=== PATIENT | female | born 1965 | race Caucasian/White ===

== ENCOUNTER 2018-03-06 12:59 | Inpatient (IN) | payer BC, OTHER ==
[~2018-03-06] VITALS: Ht 167.6 cm; Wt 74.8 kg
[2018-03-06] MEDS ORDERED: LOPERAMIDE HCL 2 MG CAPSULE PO PRN ×2 (17:00)
[2018-03-06] MEDS ORDERED: ONDANSETRON 4 MG/2 ML VIAL IM PRN (17:00)
[2018-03-06] MEDS ORDERED: ACETAMINOPHEN 325 MG TABLET PO PRN (17:00)
[2018-03-06] MEDS ORDERED: MAG HYDROX/AL HYDROX/SIMETH 30 ML LIQUID UDC PO PRN (17:00)
[2018-03-06] MEDS ORDERED: MAGNESIUM HYDROXIDE 30 ML LIQUID UDC PO PRN (17:00)
[2018-03-06] MEDS ORDERED: ONDANSETRON ODT 4 MG TAB.RAPDIS SL PRN (17:00)
[2018-03-06] MEDS ORDERED: LORAZEPAM 1 MG TABLET PO PRN ×2 (17:00)
[2018-03-06] MEDS ORDERED: THIAMINE HCL 200 MG/2 ML VIAL IM ONE (17:00)
[2018-03-06] MEDS ORDERED: LORAZEPAM 2 MG/1 ML VIAL IM PRN (17:00)
[2018-03-06] MEDS ORDERED: CLONIDINE HCL 0.1 MG TABLET PO PRN (17:00)
[2018-03-06] MEDS ORDERED: HYDROXYZINE PAMOATE 25 MG CAPSULE PO PRN (17:00)
[2018-03-06] MEDS ORDERED: diphenhydrAMINE 50 MG CAPSULE PO PRN (17:00)
[2018-03-06] MEDS ORDERED: MIRALAX 17 GM POWD.PACK PO PRN (17:00)
[2018-03-06] MEDS ORDERED: LEVO100T10 PO (17:19)
[2018-03-06] MEDS ORDERED: TRAZ-214 PO (17:19)
[2018-03-06] MEDS ORDERED: FLUO40CA49 PO (17:19)
[2018-03-06] MEDS ORDERED: ACAM333T8 PO (17:37)
[2018-03-06] MEDS ORDERED: GABA-534 PO (17:37)
[2018-03-06] MEDS ORDERED: SPIR50TA5 PO (17:37)
[2018-03-06] MEDS ORDERED: BENZ12LI MM (17:37)
[2018-03-06 18:10] LABS: BASOPHILS # (AUTO) 0.1 K/uL (0.0-8.0); BASOPHILS % (AUTO) 1.5 % (0.0-2.0); EOSINOPHILS # (AUTO) 0.1 K/uL (0.0-0.7); EOSINOPHILS % (AUTO) 1.1 % (0.0-7.0); HEMATOCRIT 37.9 % (31.2-41.9); HEMOGLOBIN 12.8 g/dL (10.9-14.3); LYMPHOCYTES # (AUTO) 1.5 K/uL (20.0-40.0); MEAN CORPUSCULAR HEMOGLOBIN 34.8 uug (24.7-32.8); MEAN CORPUSCULAR HGB CONC 34 g/dL (32.3-35.6); MEAN CORPUSCULAR VOLUME 102.5 fL (75.5-95.3); MONOCYTES # (AUTO) 0.3 K/uL (2.0-10.0); MONOCYTES % (AUTO) 5.6 % (0.0-11.0); NEUTROPHILS # (AUTO) 2.8 K/uL (1.8-8.9); NEUTROPHILS % (AUTO) 59.8 % (38.5-71.5); PLATELET COUNT (AUTO) 121 K/uL (179-408); WHITE BLOOD COUNT (AUTO) 4.7 K/uL (3.8-11.8)
[2018-03-06 18:11] LABS: BILIRUBIN,TOTAL 0.8 mg/dL (0.2-1.0); CREATININE 0.8 mg/dL (0.6-1.3); MAGNESIUM 1.5 mg/dL (1.8-2.4); POTASSIUM 3.9 mmol/L (3.5-5.1)
[2018-03-06 18:15] LABS: *AMPHETAMINE, URINE NEGATIVE (NEGATIVE); *BARBITURATE, URINE NEGATIVE (NEGATIVE); *CANNABINOID, URINE NEGATIVE (NEGATIVE); *COCCAINE, URINE NEGATIVE (NEGATIVE); *OPIATE, URINE NEGATIVE (NEGATIVE); *PHENCYCLIDINE SCREEN,URINE NEGATIVE (NEGATIVE)
[2018-03-06] MEDS ORDERED: MAGNESIUM OXIDE 400 MG TABLET PO ONE (19:45)
[2018-03-06 20:00] VITALS: BP 104/79
[2018-03-06] MEDS: GABAPENTIN 300 MG CAPSULE PO SCH (20:09)
[2018-03-06] MEDS: TRAZODONE 100 MG TABLET PO PRN (21:47)
[2018-03-07] VITALS: BP 121/86
[2018-03-07 04:00] VITALS: BP 110/72
[2018-03-07 07:44] LABS: BILIRUBIN,TOTAL 1.6 mg/dL (0.2-1.0); MAGNESIUM 1.7 mg/dL (1.8-2.4); POTASSIUM 4.5 mmol/L (3.5-5.1); TOTAL PROTEIN, SERUM 6.7 g/dL (6.4-8.2)
[2018-03-07 08:00] VITALS: BP 97/66
[2018-03-07] MEDS: THIAMINE HCL 100 MG TABLET PO SCH (08:32)
[2018-03-07] MEDS: MULTIVITAMINS,THERAPEUTIC TABLET PO SCH (08:32)
[2018-03-07] MEDS: LORAZEPAM 1 MG TABLET PO SCH ×4 (08:32→20:22)
[2018-03-07] MEDS: FOLIC ACID 1 MG TABLET PO SCH (08:32)
[2018-03-07] MEDS: GABAPENTIN 300 MG CAPSULE PO SCH ×3 (08:34→17:00)
[2018-03-07] MEDS: SPIRONOLACTONE 50 MG TABLET PO SCH (08:34)
[2018-03-07] MEDS ORDERED: TUBERCULIN,PURIF.PROT.DERIV. 5 TU/0.1 ML TEST ID ONE (09:00)
[2018-03-07] MEDS ORDERED: 5 DAY TAPER OF LORAZEPAM -SERENITY PROTOCOL PO PRN (09:00)
[2018-03-07] MEDS ORDERED: LEVOTHYROXINE SODIUM 100 MCG TABLET PO SCH (09:00)
[2018-03-07] MEDS ORDERED: MAGNESIUM OXIDE 400 MG TABLET PO ONE (11:45)
[2018-03-07 12:00] VITALS: BP 116/75
[2018-03-07 16:00] VITALS: BP 100/60
[2018-03-07 20:00] VITALS: BP 125/83
[2018-03-07] MEDS: TRAZODONE 100 MG TABLET PO PRN (20:31)
[2018-03-07] MEDS: IBUPROFEN 600 MG TABLET PO PRN (20:31)
[2018-03-08] VITALS (7 sets, daily range): BP systolic 102–121; BP diastolic 73–80
[2018-03-08] MEDS: LEVOTHYROXINE SODIUM 100 MCG TABLET PO SCH (07:02)
[2018-03-08 07:45] LABS: BILIRUBIN,TOTAL 1.1 mg/dL (0.2-1.0); CREATININE 1.2 mg/dL (0.6-1.3); MAGNESIUM 1.9 mg/dL (1.8-2.4); POTASSIUM 4.2 mmol/L (3.5-5.1); TOTAL PROTEIN, SERUM 7.4 g/dL (6.4-8.2)
[2018-03-08] MEDS: LORAZEPAM 1 MG TABLET PO SCH ×3 (08:37→21:00)
[2018-03-08] MEDS: FOLIC ACID 1 MG TABLET PO SCH (08:37)
[2018-03-08] MEDS: SPIRONOLACTONE 50 MG TABLET PO SCH (08:37)
[2018-03-08] MEDS: FLUOXETINE HCL 20 MG CAPSULE PO SCH (08:37)
[2018-03-08] MEDS: THIAMINE HCL 100 MG TABLET PO SCH (08:37)
[2018-03-08] MEDS: GABAPENTIN 300 MG CAPSULE PO SCH ×3 (08:38→22:15)
[2018-03-08] MEDS: MULTIVITAMINS,THERAPEUTIC TABLET PO SCH (08:38)
[2018-03-08 15:09] LABS: HEPATITIS B SURFACE AG Negative (Negative)
[2018-03-08] MEDS: IBUPROFEN 600 MG TABLET PO PRN (17:23)
[2018-03-09] VITALS: BP 99/64
[2018-03-09 04:00] VITALS: BP 100/59
[2018-03-09] MEDS: LEVOTHYROXINE SODIUM 100 MCG TABLET PO SCH (06:51)
[2018-03-09 08:12] VITALS: BP 104/69
[2018-03-09] MEDS: SPIRONOLACTONE 50 MG TABLET PO SCH (08:35)
[2018-03-09] MEDS: LORAZEPAM 1 MG TABLET PO SCH ×4 (08:35→21:20)
[2018-03-09] MEDS: FLUOXETINE HCL 20 MG CAPSULE PO SCH (08:36)
[2018-03-09] MEDS: GABAPENTIN 300 MG CAPSULE PO SCH ×3 (08:36→21:20)
[2018-03-09] MEDS: MULTIVITAMINS,THERAPEUTIC TABLET PO SCH (08:36)
[2018-03-09] MEDS: THIAMINE HCL 100 MG TABLET PO SCH (08:36)
[2018-03-09] MEDS: FOLIC ACID 1 MG TABLET PO SCH (08:36)
[2018-03-09 12:00] VITALS: BP 104/74
[2018-03-09 16:00] VITALS: BP 111/73
[2018-03-09 20:00] VITALS: BP 126/82
[2018-03-09] MEDS: TRAZODONE 100 MG TABLET PO PRN (21:20)
[2018-03-10] VITALS: BP 92/51
[2018-03-10 04:00] VITALS: BP 91/53
[2018-03-10] MEDS: LEVOTHYROXINE SODIUM 100 MCG TABLET PO SCH (06:23)
[2018-03-10 08:01] VITALS: BP 109/70
[2018-03-10] MEDS: SPIRONOLACTONE 50 MG TABLET PO SCH (08:22)
[2018-03-10] MEDS: MULTIVITAMINS,THERAPEUTIC TABLET PO SCH (08:22)
[2018-03-10] MEDS: FLUOXETINE HCL 20 MG CAPSULE PO SCH (08:22)
[2018-03-10] MEDS: LORAZEPAM 1 MG TABLET PO SCH ×3 (08:22→20:21)
[2018-03-10] MEDS: THIAMINE HCL 100 MG TABLET PO SCH (08:22)
[2018-03-10] MEDS: FOLIC ACID 1 MG TABLET PO SCH (08:22)
[2018-03-10] MEDS: GABAPENTIN 300 MG CAPSULE PO SCH ×3 (08:22→20:21)
[2018-03-10 12:00] VITALS: BP 113/81
[2018-03-10 16:00] VITALS: BP 116/81
[2018-03-10 20:00] VITALS: BP 118/82
[2018-03-10] MEDS: TRAZODONE 100 MG TABLET PO PRN (20:20)
[2018-03-11] VITALS: BP 94/56
[2018-03-11 04:00] VITALS: BP 102/72
[2018-03-11] MEDS: LEVOTHYROXINE SODIUM 100 MCG TABLET PO SCH (06:30)
[2018-03-11 08:00] VITALS: BP 101/59
[2018-03-11] MEDS: SPIRONOLACTONE 50 MG TABLET PO SCH (08:46)
[2018-03-11] MEDS: THIAMINE HCL 100 MG TABLET PO SCH (08:46)
[2018-03-11] MEDS: MULTIVITAMINS,THERAPEUTIC TABLET PO SCH (08:46)
[2018-03-11] MEDS: FOLIC ACID 1 MG TABLET PO SCH (08:46)
[2018-03-11] MEDS: FLUOXETINE HCL 20 MG CAPSULE PO SCH (08:46)
[2018-03-11] MEDS: LORAZEPAM 1 MG TABLET PO SCH ×2 (08:46→20:13)
[2018-03-11] MEDS: GABAPENTIN 300 MG CAPSULE PO SCH ×3 (08:47→20:13)
[2018-03-11] MEDS: IBUPROFEN 600 MG TABLET PO PRN (09:17)
[2018-03-11 12:00] VITALS: BP 121/77
[2018-03-11 16:00] VITALS: BP 139/91
[2018-03-11 20:00] VITALS: BP 104/77
[2018-03-11] MEDS: TRAZODONE 100 MG TABLET PO PRN (20:13)
[2018-03-12] MEDS: LEVOTHYROXINE SODIUM 100 MCG TABLET PO SCH (06:52)
[2018-03-12 08:57] VITALS: BP 123/81
[2018-03-12] MEDS: SPIRONOLACTONE 50 MG TABLET PO SCH (09:23)
[2018-03-12] MEDS: MULTIVITAMINS,THERAPEUTIC TABLET PO SCH (09:23)
[2018-03-12] MEDS: THIAMINE HCL 100 MG TABLET PO SCH (09:23)
[2018-03-12] MEDS: FLUOXETINE HCL 20 MG CAPSULE PO SCH (09:23)
[2018-03-12] MEDS: GABAPENTIN 300 MG CAPSULE PO SCH ×3 (09:23→21:13)
[2018-03-12] MEDS: FOLIC ACID 1 MG TABLET PO SCH (09:23)
[2018-03-12] MEDS ORDERED: TRAZ-214 PO (12:30)
[2018-03-12] MEDS ORDERED: HYDR-3895 PO (12:30)
[2018-03-12 12:43] VITALS: BP 132/87
[2018-03-12 16:00] VITALS: BP 126/64
[2018-03-12 20:00] VITALS: BP 105/74
[2018-03-12] MEDS: IBUPROFEN 600 MG TABLET PO PRN (21:13)
[2018-03-12] MEDS: TRAZODONE 100 MG TABLET PO PRN (21:13)
[2018-03-13] VITALS: BP 108/70
[2018-03-13] MEDS: LEVOTHYROXINE SODIUM 100 MCG TABLET PO SCH (07:00)
[2018-03-13 08:03] VITALS: BP 101/63
[2018-03-13] MEDS: GABAPENTIN 300 MG CAPSULE PO SCH (08:41)
[2018-03-13] MEDS: FLUOXETINE HCL 20 MG CAPSULE PO SCH (08:41)
[2018-03-13] MEDS: FOLIC ACID 1 MG TABLET PO SCH (08:41)
[2018-03-13] MEDS: MULTIVITAMINS,THERAPEUTIC TABLET PO SCH (08:41)
[2018-03-13] MEDS: THIAMINE HCL 100 MG TABLET PO SCH (08:41)
[2018-03-13] MEDS: SPIRONOLACTONE 50 MG TABLET PO SCH (08:42)
== END 2018-03-13 09:22 | disposition other institution (70) | DRG 895 ==
LOC: EDBD 15:29 → SRC 15:29
PROVIDERS: ADMIT Family Medicine Addiction Medicine; ATTEND Family Medicine Addiction Medicine
PROC: HZ2ZZZZ Detoxification Services for Substance Abuse Treatment (ICD-10-PCS; principal; 2018-03-06)
PROC: HZ41ZZZ Group Counseling for Substance Abuse Treatment, Behavioral (ICD-10-PCS; 2018-03-07)
PROC: HZ31ZZZ Individual Counseling for Substance Abuse Treatment, Behavioral (ICD-10-PCS; 2018-03-11)
DX: F10.230 Alcohol dependence with withdrawal, uncomplicated (principal); F33.9 Major depressive disorder, recurrent, unspecified; K70.30 Alcoholic cirrhosis of liver without ascites; Y90.6 Blood alcohol level of 120-199 mg/100 ml; E03.9 Hypothyroidism, unspecified; F43.10 Post-traumatic stress disorder, unspecified; Z98.84 Bariatric surgery status; E83.42 Hypomagnesemia; S93.401A Sprain of unspecified ligament of right ankle, initial encounter; S70.211A Abrasion, right hip, initial encounter; W10.8XXA Fall (on) (from) other stairs and steps, initial encounter; Y92.238 Other place in hospital as the place of occurrence of the external cause
CPT/HCPCS: 36415; 70030-TC; 73502; 80307; 83690; 83735; 85025; 86580; 86592; 86705; 86803; 87340; 87806; G0480; Q0162